=== PATIENT | female | born 1985 | race Caucasian/White ===

== ENCOUNTER 2022-12-10 08:47 | Emergency (ER) | payer OTHER ==
[2022-12-10] VITALS (9 sets, daily range): BP systolic 94–127; BP diastolic 55–87
[~2022-12-10] VITALS: Ht 149.9 cm; Wt 62.6 kg
[~2022-12-10 08:47] MED LIST: ALPRAZOLAM0.25 M1 PO; CIPRO500 MG OR; CIPRO500 MG PO; CONCEPT OB PO; FERROUS SULF325 M1 PO; FLAGYL500 MG PO; FLUOXETINE20 MG PO; FLUZONE SPLT1 M1 IM; HEMAX PO; IBUPROFEN600 MG PO; LORTAB 5 OR; LORTAB 7.5 PO; MACRODANTIN100 MG OR; NO MEDS; OTC SINUS; PHENERGAN SUPP RE; SPRINTEC 2828 DAY; TRAMADOL HCL50 MG PO; TYLENOL500 MG OR; ZOFRAN ODT4 MG PO
[2022-12-10] MEDS ORDERED: PREDNISONE20 MG PO (11:12)
[2022-12-10] MEDS ORDERED: TUSSI-PRE2 PO (11:12)
== END 2022-12-10 11:55 | disposition home or self-care (01) ==
LOC: ED 08:47
DX: J40 Bronchitis, not specified as acute or chronic (principal)

== ENCOUNTER 2023-04-29 06:45 | Day surgery (SDC) | payer SELFPAY ==
[~2023-04-29 06:45] MED LIST changes: +PREDNISONE20 MG PO; +TUSSI-PRE2 PO
[2023-04-29 08:34] VITALS: BP 100/69
== END 2023-04-29 08:24 | disposition home or self-care (01) | DRG 392 ==
LOC: ENDO 06:45 → ORM 07:30 → ENDO 08:24 → ORM 08:30
PROVIDERS: ATTEND Surgery
PROC: 0DB48ZX Excision of Esophagogastric Junction, Via Natural or Artificial Opening Endoscopic, Diagnostic (ICD-10-PCS; principal; 2023-04-29)
PROC: 0DB18ZX Excision of Upper Esophagus, Via Natural or Artificial Opening Endoscopic, Diagnostic (ICD-10-PCS; 2023-04-29)
DX: K21.00 Gastro-esophageal reflux disease with esophagitis, without bleeding (principal); K44.9 Diaphragmatic hernia without obstruction or gangrene; Z80.0 Family history of malignant neoplasm of digestive organs